=== PATIENT | female | born 1985 | race Caucasian/White ===

== ENCOUNTER → 2019-07-18 | Outpatient (CLI) | payer BC ==
[2019-07-18 13:21] LABS: Basophils % (A) 0 %; Eosinophils % (A) 0 %; HCT 36.1 % (34.0-46.0); Lymphocytes # (A) 1.9 k/uL (1.0-4.8); Lymphocytes % (A) 24 %; MCH 27.6 pg (25.0-35.0); MCHC 33.3 g/dL (31.0-37.0); MCV 82.9 fL (80.0-100.0); Mean Platelet Volume 8.8; Monocytes # (A) 0.5 k/uL (0-1.0); Monocytes % (A) 6 %; Neutrophils # (A) 5.5 k/uL (1.3-7.7); Neutrophils % (A) 68 %; Platelet Count 172 k/uL (150-450); RBC 4.35 m/uL (3.80-5.40); RDW 13.3 % (11.5-15.5); WBC 8.1 k/uL (3.8-10.6)
== END | disposition home or self-care (01) ==
LOC: LABPAT 11:40
PROVIDERS: ATTEND Obstetrics & Gynecology
DX: Z01.818 Encounter for other preprocedural examination (principal); O03.9 Complete or unspecified spontaneous abortion without complication
CPT/HCPCS: 85025

== ENCOUNTER 2019-07-20 06:05 | Day surgery (SDC) | payer BC ==
[2019-07-18 13:42] VITALS: BMI 27.3
[~2019-07-20 06:05] MED LIST: DEXAMETHASONE SOD PHOSPHATE 10 MG/ML 1 ML VIAL IV ONE; HYDROmorphone 0.5 MG/0.5 ML SYRINGE IVP PRN; KETOROLAC 30 MG/ML 1 ML VIAL IVP SCH; LACTATED RINGERS 1,000 ML IV SCH; LIDOCAINE 1% (10MG/ML) FOR IV START INTRADERMA PRN; METOCLOPRAMIDE 5 MG/ML 2 ML VIAL IVP PRN; ONDANSETRON 4 MG/2 ML VIAL IVP ONE; SCOPOLAMINE 1.5MG/72HR PATCH TRANSDERM ONE
[2019-07-20 06:32] VITALS: RESP 16
[2019-07-20] MEDS ORDERED: LIDOCAINE 1% INJ 10MG/ML (20 ML MDV) ONE (07:01)
[2019-07-20] MEDS ORDERED: PROPOFOL 10 MG/ML 20 ML VIAL IV ONE (07:01)
[2019-07-20] MEDS ORDERED: MIDAZOLAM 2 MG/2 ML VIAL ONE (07:01)
[2019-07-20] MEDS ORDERED: METHYLERGONOVINE 0.2 MG/ML 1 ML AMP ONE (07:01)
[2019-07-20] MEDS ORDERED: fentaNYL (PF) 50 MCG/ML 2 ML AMP ONE (07:01)
[2019-07-20] MEDS ORDERED: KETOROLAC 30 MG/ML 1 ML VIAL ONE (07:01)
[2019-07-20] MEDS ORDERED: SUCCINYLCHOLINE CHLORIDE 100 MG/5 ML SYR IV ONE (07:01)
[2019-07-20] MEDS ORDERED: SODIUM CHLORIDE 0.9% 100 ML with ceFAZolin 2,000 MG IV ONE ×2 (07:17)
[2019-07-20 07:55] VITALS: TEMP 97.6
--- NOTE | 2019-07-20 08:07 | P.OP ---
Date of Procedure: 07/20/19 Preoperative Diagnosis: IUFD at 14 and one sevenths weeks by ultrasound, 19 weeks by dates. Postoperative Diagnosis: Same, blood type O+. Procedure(s) Performed: Dilatation and evacuation of the uterine cavity Anesthesia: HARMAN Surgeon: Maria Eugenia Coleman Estimated Blood Loss (ml): 100 IV fluids (ml): 800 Urine output (ml): 50 Pathology: other (Products of conception) Condition: stable Disposition: PACU Description of Procedure: Patient is brought to the operating suite where a general anesthetic is administered without difficulty. Antibiotics are given. The appropriate timeout is performed to assure proper patient and procedural identification. Examination under anesthesia reveals a proximal a 16 week size uterus, negative adnexa bilaterally, soft cervix. There is a small amount of cervical prolapse noted as well. Bladder is drained for 50 mL of clear yellow urine. The perineal body is prepped and draped in the usual sterile fashion. The anterior lip of the cervix is grasped with an Allis clamp. The uterus sounds to a depth of 16 cm. The cervix is gently and systematically dilated using Hegar dilators. The largest curved sterile plastic curette is placed to the dome of the fundus. Under appropriate suction pressures the cavity is then curettaged. Meconium- stained fluid is noted upon amniorrhexis. tissue is obtained. A ring forcep is used to continue to remove all parts. When I am quite certain that the tissue is completely evacuated, optometric tech places the ultrasound probe suprapubically. Evaluation of the cavity is obtained, no retained products of conception are visualized. The curved curet is once again placed to the fundus and the uterus is completely evacuated. It is massaged. Methergine was given. Bleeding is minimal at this point. The Allis clamp is removed. The cervix is clean and dry. All sponge needle and enhancement counts are correct at the end of the procedure. A tissue sample is taken and sent with the Anora kit with buccal swab and blood as per man giovanaactwinstonr's recommendation. All paperwork is filled out properly. Patient is brought back to the recovery room in very good condition with stable vital signs including a pulse of 68, 98% O2 saturation, blood pressure 91/53. Blood type is O+. Toradol is given prior to leaving the operative suite. Patient will follow-up with me in the office in 2 weeks, written instructions are provided.
--- NOTE | 2019-07-20 09:18 | US ---
EXAMINATION TYPE: US guidance for procedure DATE OF EXAM: 07/20/2019 COMPARISON: NONE HISTORY: Intrauterine demise. TECHNIQUE: Ultrasound pelvis intraoperatively. FINDINGS: Pelvic ultrasound images performed intraoperatively to aid in dilatation and evacuation pro cedure. Anteverted heterogeneous uterus seen on images saved with thickened central endometrium. IMPRESSION: As above.
[2019-07-20 09:23] VITALS: BP 110/66; PULSE 87
== END 2019-07-20 09:20 | disposition home or self-care (01) ==
LOC: OR 06:05
PROVIDERS: ATTEND Obstetrics & Gynecology
DX: O02.1 Missed abortion (principal); Z83.3 Family history of diabetes mellitus; Z88.0 Allergy status to penicillin
CPT/HCPCS: 88305; 88300; 76942; 59821; J2250; J1100; J2210; J2405; J0690; J2001; J3010; J1885; J0330; J2704; 86850; 86900; 86901

== ENCOUNTER 2020-07-24 06:08 | Inpatient (IN) | payer BC ==
[2020-07-24] MEDS ORDERED: TERBUTALINE 1 MG/ML VIAL SQ PRN (06:22)
[2020-07-24] MEDS ORDERED: LIDOCAINE 0.5% (PF) 5 MG/ML (50 ML SDV) SQ PRN (06:22)
[2020-07-24] MEDS ORDERED: CARBOPROST TROMETHAMINE 250 MCG/ML 1 ML AMP IM PRN (06:22)
[2020-07-24] MEDS ORDERED: METHYLERGONOVINE 0.2 MG/ML 1 ML AMP IM PRN (06:22)
[2020-07-24] MEDS ORDERED: CLINDAMYCIN 900 MG in DEXTROSE 5% IN WATER 50 ML IVPB STA ×2 (06:22)
[2020-07-24] MEDS ORDERED: OXYTOCIN 10 UNIT/ML 1 ML VIAL IM PRN (06:22)
[2020-07-24] MEDS ORDERED: OXYTOCIN 30 UNITS/500 ML NS 30 UNIT in SALINE 1 500ML.BAG IV SCH (06:30)
[2020-07-24] MEDS: LACTATED RINGERS 1,000 ML IV SCH ×2 (06:30→08:58)
[2020-07-24 06:48] LABS: Anisocytosis Slight; Basophils % (A) 0 %; Eosinophils # (A) 0.1 k/uL (0-0.7); Eosinophils % (A) 1 %; HCT 34.9 % (34.0-46.0); HGB 12.5 gm/dL (11.4-16.0); Lymphocytes # (A) 1.4 k/uL (1.0-4.8); Lymphocytes % (A) 10 %; MCH 29.6 pg (25.0-35.0); MCHC 35.7 g/dL (31.0-37.0); Mean Platelet Volume 10.3; Microcytosis Slight; Monocytes # (A) 0.6 k/uL (0-1.0); Monocytes % (A) 5 %; Neutrophils # (A) 10.9 k/uL (1.3-7.7); Neutrophils % (A) 83 %; RBC 4.21 m/uL (3.80-5.40); RDW 19.9 % (11.5-15.5); WBC 13.1 k/uL (3.8-10.6)
--- NOTE | 2020-07-24 07:53 | P.HPOB ---
History of Present Illness H&P Date: 07/24/20 Chief Complaint: Here for induction of labor This is a 34-year-old white female 3 para 1011 EDC 07/29/2020 at 39-2/7 weeks' gestation. Patient presents this morning for induction of labor. She has been having mild uterine contractions through the night. Fetus is been active throughout the . Past surgical history D&E 2023 IUFD 19 weeks by dates. [place] teeth extracted. Current medications vitamins daily. ALLERGIES penicillin to which reports her tongue swelling. Family history significant for diabetes mellitus. Reproductive history vaginal delivery with vacuum extractor 2016, 7 lbs. 3 oz. fetus. Social history patient is , she is a former tobacco smoker, she denies alcohol or drug use. 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 history group B strep cultures are positive. Blood type O+, rubella status nonimmune. VDRL testing, urine culture, hepatitis B surface antigen, HIV testing, gonorrhea and chlamydia cultures all negative. One-hour Glucola within normal limits. On examination patient is 5 foot 0 inches, 162 pounds, blood pressure 131/76. The general physical exam is within normal limits. Cervix is 3-4 cm dilated, 60-70% effaced, -2 station, vertex presentation. Artificial amniorrhexis reveal s clear fluid. heart rate is in the 150s to 160s baseline with accelerations, consistent with reactive NST. Impression: 39-2/7 weeks intrauterine , here for induction of labor. Positive group B strep cultures. All signs otherwise reassuring. Plan: Oxytocin per hospital protocol. Cleocin per hospital protocol. Close maternal and surveillance. Anticipate normal spontaneous vaginal delivery. Review of Systems Constitutional: Reports as per HPI Past Medical History Additional Past Medical History / Comment(s): Miscarriage History of Any Multi-Drug Resistant Organisms: None Reported Additional Past Surgical History / Comment(s): Jerome teeth Past Anesthesia/Blood Transfusion Reactions: No Reported Reaction Additional Past Anesthesia/Blood Transfusion Reaction / Comment(s): Jerome teeth only Past Psychological History: No Psychological Hx Reported Past Alcohol Use History: None Reported Additional Past Alcohol Use History / Comment(s): Quit 10 years ago. Past Drug Use History: None Reported - Past Family History Mother Family Medical History: No Reported History Medications and Allergies Home Medications Medication Instructions Recorded Confirmed Type Pnv No.95/Ferrous Fum/Folic AC 1 each PO DAILY 07/18/19 07/24/20 History [ Multivitamin Tablet] Allergies Allergy/AdvReac Type Severity Reaction Status Date / Time Penicillins Allergy Swelling Verified 07/24/20 06:22 Exam Intake and Output 07/23/20 07/24/20 07/24/20 22:59 06:59 14:59 Other: Weight 73.482 kg See dictation under HPI please Results Result Diagrams: 07/24/20 06:30 Abnormal Lab Results - Last 24 Hours (Table) 07/24/20 Range/Units 06:30 WBC 13.1 H (3.8-10.6) k/uL RDW 19.9 H (11.5-15.5) % Assessment and Plan Assessment: 39-2/7 weeks intrauterine , here for induction of labor. Positive group B strep cultures. Baseline heart rate 150s to 160s, reassuring overall monitoring strip. Plan: Cleocin per hospital protocol. Oxytocin per hospital protocol. Close maternal and surveillance. Anticipate normal spontaneous vaginal delivery. Time with Patient: Less than 30
[2020-07-24 08:11] LABS: Platelet Count 98 k/uL (150-450)
[2020-07-24 08:13] LABS: Poikilocytosis (M) Present
[2020-07-24 08:14] LABS: Anisocytosis (M) Present
[2020-07-24] MEDS ORDERED: ROPIVACAINE 100 MG, fentaNYL (PF) 200 MCG in SODIUM CHLORIDE 0.9% 76 ML EPIDURAL ONE (09:14)
[2020-07-24] MEDS ORDERED: diphenhydrAMINE 50 MG/ML 1 ML VIAL IVP PRN ×2 (11:40)
[2020-07-24] MEDS ORDERED: diphenhydrAMINE 25 MG CAP PO PRN (11:40)
[2020-07-24] MEDS ORDERED: diphenhydrAMINE 50 MG CAP PO PRN (11:40)
[2020-07-24] MEDS ORDERED: HYDROCORTISONE 2.5% RECTAL CREAM 30 GM TUBE RECTAL PRN (11:40)
[2020-07-24] MEDS ORDERED: BENZOCAINE/MENTHOL SPRAY 1 GM/SPRAY AEROSOL TOPICAL PRN (11:40)
[2020-07-24] MEDS ORDERED: ZOLPIDEM 5 MG TAB PO PRN (11:40)
[2020-07-24] MEDS ORDERED: SIMETHICONE 80 MG CHEWABLE PO PRN (11:40)
[2020-07-24] MEDS ORDERED: LANOLIN CREAM 5 GM TUBE TOPICAL PRN (11:40)
--- NOTE | 2020-07-24 11:40 | P.PROBDLV ---
Vaginal Delivery Note - . Vaginal Delivery Note: This is a 34-year-old white female 3 para 1011 EDC 07/29/2020 at 39-2/7 weeks' gestation who presented this morning for induction. She was found to be in early spontaneous labor. Blood type O positive, group B strep cultures positive, rubella status nonimmune. Please see dictated history and physical for details. Artificial amniorrhexis revealed clear fluid. Pitocin was started and titrated per hospital protocol, only reaching four mcg's. Epidural was placed per the patient's request. Patient request well through the first stage of labor was judged to be completely dilated at 1109 hrs. perineal body was prepped and draped in usual sterile fashion. With excellent maternal expulsive efforts head delivered occiput anterior and the baby restituted accordingly. There was no nuchal cord noted. The right or anterior shoulder was delivered from underneath the pubic symphysis at which time the oropharynx, nasopharynx, and external nares were bulb suctioned thoroughly. Patient was officially delivered of a liveborn female infant at 1120 hours. Umbilical cord was doubly clamped and ligated, she was handed to waiting nurses for evaluation where scores of 8 and 9 at one and 5 minutes respectively were given. Placenta delivered spontaneously, it was inspected and noted to be intact with trivascular cord at 1122 hours. Uterus is then massaged. Careful inspection of the cervix, vagina, perineum, periurethral, and perirectal areas revealed a small first-degree midline perineal laceration easily repaired in the usual fashion using 3-0 Monocryl suture. Total estimated blood loss 250 mL's. All sponge needle and enhancement counts are correct. weight 8 lbs. 1 oz. or 3655 g. Patient and her family are allowed to begin the bonding experience in the LDR. Please note that Cleocin was given 1 dose for history of positive g roup B strep cultures.
[2020-07-24] MEDS: IBUPROFEN 600 MG TAB PO SCH ×2 (14:23→20:04)
[2020-07-24] MEDS ORDERED: CLINDAMYCIN 900 MG in DEXTROSE 5% IN WATER 50 ML IVPB SCH ×2 (14:30)
[2020-07-24] MEDS: ACETAMINOPHEN TAB 325 MG TAB PO PRN ×2 (17:10→23:47)
[2020-07-24] MEDS: SENNOSIDES-DOCUSATE SODIUM 1 EACH TAB PO SCH (20:03)
[2020-07-25] MEDS: IBUPROFEN 600 MG TAB PO SCH ×5 (02:11→19:44)
[2020-07-25] MEDS: ACETAMINOPHEN TAB 325 MG TAB PO PRN ×3 (04:20→22:55)
[2020-07-25 07:16] LABS: Anisocytosis Moderate; Basophils % (A) 0 %; Eosinophils % (A) 0 %; HCT 28.3 % (34.0-46.0); Lymphocytes % (A) 10 %; MCH 29.7 pg (25.0-35.0); MCHC 35.2 g/dL (31.0-37.0); MCV 84.5 fL (80.0-100.0); Mean Platelet Volume 10.1; Microcytosis Slight; Monocytes # (A) 0.5 k/uL (0-1.0); Monocytes % (A) 5 %; Neutrophils # (A) 8.5 k/uL (1.3-7.7); Neutrophils % (A) 83 %; RBC 3.35 m/uL (3.80-5.40); RDW 20.2 % (11.5-15.5); WBC 10.2 k/uL (3.8-10.6)
[2020-07-25 07:24] LABS: Platelet Count 84 k/uL (150-450)
--- NOTE | 2020-07-25 08:02 | P.DS ---
Providers Date of admission: 07/24/20 06:08 Expected date of discharge: 07/25/20 Attending physician: Maria Eugenia Coleman Primary care physician: Stated None Hospital Course: This is a 34-year-old female 3 para 1011 EDC 07/29/2020 at 39-2/7 weeks' gestation who presented for induction. Rupee strep cultures positive. Blood type O+. Rubella status nonimmune. Please see dictated history and physical for details. Artificial amniorrhexis revealed clear fluid. Oxytocin was started and titrated per hospital protocol. Patient went on to rather quickly deliver vaginally a liveborn female with scores of 8 and 9 at one and 5 minutes respectively. There was a small first-degree perineal laceration easily repaired. Fundus is firm, midline, symmetric, 18 week size. Weight 8 lbs. 1 oz. or 3655 g. Please see dictated delivery note for details. This morning the patient is doing well. She is voiding, ambulating, passing flatus without difficulty. Vital signs are stable and she is afebrile. Fundus firm and in the midline, symmetric and 18 week size. Extremities are negative for edema. Chest is clear in all becerra. [place] infant is doing well. Patient is judged to be in good condition for discharge home. Patient will follow-up with me in the office in 6 weeks. I have reminded her no intercourse, tampons or douching. She will use [id number] Advil or Aleve, or Motrin as needed for pain. She will call with any fevers shakes or chills, foul smelling or copious lochia, with the passage of large blood clots, with any pain not alleviated by [id number] products, or indeed with any concerns. We have briefly discussed options for contraception and we will discuss this further in the office. Assessment: Doing well day #1 Patient Condition at Discharge: Good Plan - Discharge Summary Discharge Rx Participant: No New Discharge Prescriptions: No Action Pnv No.95/Ferrous Fum/Folic AC [ Multivitamin Tablet] 1 each PO DAILY Discharge Medication List Pnv No.95/Ferrous Fum/Folic AC [ Multivitamin Tablet] 1 each PO DAILY 07/18/19 [History] Follow up Appointment(s)/Referral(s): Maria Eugenia Coleman MD [STAFF PHYSICIAN] - 6 Weeks Discharge Disposition: HOME SELF-CARE
[2020-07-25] MEDS: SENNOSIDES-DOCUSATE SODIUM 1 EACH TAB PO SCH ×2 (09:35→14:11)
[2020-07-26] MEDS: IBUPROFEN 600 MG TAB PO SCH ×3 (07:24→15:07)
[2020-07-26] MEDS: SENNOSIDES-DOCUSATE SODIUM 1 EACH TAB PO SCH (08:15)
[2020-07-26 08:29] VITALS: RESP 16
[2020-07-26] MEDS: ACETAMINOPHEN TAB 325 MG TAB PO PRN (12:31)
[2020-07-26 16:03] VITALS: BP 112/70; PULSE 75; TEMP 98.2
== END 2020-07-26 17:15 | disposition home or self-care (01) | DRG 807 ==
LOC: 4FBP 06:08
PROVIDERS: ADMIT Obstetrics & Gynecology; ATTEND Obstetrics & Gynecology
PROC: 00HU33Z Insertion of Infusion Device into Spinal Canal, Percutaneous Approach (ICD-10-PCS; principal; 2020-07-24)
PROC: 10E0XZZ Delivery of Products of Conception, External Approach (ICD-10-PCS; principal; 2020-07-24)
PROC: 10907ZC Drainage of Amniotic Fluid, Therapeutic from Products of Conception, Via Natural or Artificial Opening (ICD-10-PCS; principal; 2020-07-24)
PROC: 3E0R3BZ Introduction of Anesthetic Agent into Spinal Canal, Percutaneous Approach (ICD-10-PCS; principal; 2020-07-24)
PROC: 0HQ9XZZ Repair Perineum Skin, External Approach (ICD-10-PCS; principal; 2020-07-24)
PROC: 3E033VJ Introduction of Other Hormone into Peripheral Vein, Percutaneous Approach (ICD-10-PCS; principal; 2020-07-24)
DX: O99.824 Streptococcus B carrier state complicating childbirth (principal); Z37.0 Single live birth; O70.0 First degree perineal laceration during delivery; Z3A.39 39 weeks gestation of pregnancy; Z79.899 Other long term (current) drug therapy; Z87.891 Personal history of nicotine dependence; Z88.0 Allergy status to penicillin; Z83.3 Family history of diabetes mellitus
CPT/HCPCS: 85025; 86850; 86900; 86901